=== PATIENT | male | born 1955 | race American Indian/Alaskan Native ===

== ENCOUNTER 2017-12-16 02:09 | Emergency (ER) | payer OTHER ==
--- NOTE | 2017-12-16 04:05 | Emergency Department Report ---
Chief Complaint: Back Pain/Injury Stated Complaint: BODY PAIN Time Seen by Provider: 12/16/17 04:01 - HPI History of Present Illness: Patient here complaining of left back pain on the left side that spreads all the way through his body. Patient denies any injury. He said he took Motrin at home but it didn't help. Patient blood pressure is elevated and he said he always has high blood pressure and he goes to the [place] for treatment but has not gone recently. He said his pain is 10 out of 10 on his left back that feels like it's going through his body. Patient blood pressure is 180/118 on evaluation. He has a history of hypertension, diverticulitis and renal cysts. Denies any urinary burning frequency or urgency. Denies any fever or chills. - ROS Review of Systems: All systems are negative unless stated in HPI above - Exam Vital Signs: Vital Signs 12/16/17 02:16 Temperature 97.5 F L Pulse Rate 74 Respiratory 17 Rate Blood Pressure 180/118 O2 Sat by Pulse 99 Oximetry Physical Exam: Gen.: This is a 62-year-old male that says it's difficult for him to stand. He is having pain to the left side of his back that feels like it's going through his body. Abdomen: Protruded, when palpated he's that he feels it in his back. Back: Normal inspection. He said he is unable to touch his toes. Patient did not want to do straight leg raises. MSE screening note: Focused history and physical exam performed. Due to findings the following was ordered: ED Medical Decision Making - Medical Decision Making MDM: Patient screened and to be seen by provider in [place] emergency room. Patient is 62 years old with elevated but pressure, history of high blood pressure, dizziness and piercing back pain on the left lower side of his back. Patient needs workup for AAA to include labs and CT scan of the abdomen and pelvis without contrast. He is also complaining of dizziness so he'll also have CT scan of the head without contrast. I discussed this with Dr. Beverly and chart given to Yesika was the charge nurse.. ED Disposition for MSE Condition: Stable Referrals: PRIMARY CARE, [Primary Care Provider] - 3-5 Days
[2017-12-16] MEDS ORDERED: MORPHINE IV ONE (04:06)
[2017-12-16] MEDS ORDERED: ZOFRAN IV ONE ×2 (04:06→09:22)
[2017-12-16 04:53] LABS: Basophils # (Auto) 0.1 K/mm3 (0.0-0.1); Eosinophils # (Auto) 0.3 K/mm3 (0.0-0.4); Eosinophils % (Auto) 5.9 % (0.0-4.3); Hematocrit 50.3 % (35.5-45.6); Hemoglobin 16.7 gm/dl (11.8-15.2); Lymphocytes # (Auto) 2.5 K/mm3 (1.2-5.4); Lymphocytes % (Auto) 46.1 % (13.4-35.0); Mean Corpuscular HGB Conc 33 % (32-34); Mean Corpuscular Hemoglobin 28 pg (28-32); Mean Corpuscular Volume 85 fl (84-94); Monocytes # (Auto) 0.6 K/mm3 (0.0-0.8); Platelet Count 234 K/mm3 (140-440); Red Blood Count 5.96 M/mm3 (3.65-5.03); Red Cell Distribution Width 14.9 % (13.2-15.2)
[2017-12-16 05:04] LABS: INR 0.83 (0.87-1.13)
[2017-12-16 05:05] LABS: Partial Thromboplastin Time 27.7 Sec. (24.2-36.6)
--- NOTE | 2017-12-16 05:23 | Cat Scan Report ---
FINAL REPORT EXAM: CT HEAD/BRAIN WO CON HISTORY: elevated bp with dizziness TECHNIQUE: CT imaging acquired through the head without intravenous contrast. Transaxial reformations are provided. PRIORS: None. FINDINGS: The ventricles, cisterns and sulci are within normal limits. No intraparenchymal or extra-axial mass, hemorrhage, or mass effect. Jnoes and white-matter differentiation is within normal limits for patient age. Normal spherical shape of the globes. No significant abnormality involving the imaged portions of the paranasal sinuses and mastoid air cells. No skull or facial fracture visualized. IMPRESSION: No acute intracranial abnormality. Consider follow-up MRI as warranted.
[2017-12-16 05:40] LABS: Alanine Aminotransferase 24 units/L (7-56); Albumin 4.3 g/dL (3.9-5); BUN/Creatinine Ratio 12; Blood Urea Nitrogen 12 mg/dL (9-20); Calcium 9.1 mg/dL (8.4-10.2); Hemolysis Index 32
[2017-12-16 05:42] LABS: Bilirubin,Direct < 0.2 mg/dL (0-0.2)
--- NOTE | 2017-12-16 05:50 | Cat Scan Report ---
FINAL REPORT EXAM: CT ABDOMEN PELVIS WO CON HISTORY: elevated bp with left back pain TECHNIQUE: CT images obtained through the Abdomen and Pelvis without contrast. Transaxial,coronal and sagittal reformats are provided. PRIORS: None. FINDINGS: Imaged intrathoracic contents are unremarkable. There are several renal cysts measuring up to 3.2 cm in the left kidney and 2 cm in the right kidney. Kidneys are normal in size, axis and position. No hydronephrosis or nephrolithiasis. The ureters are normal in course and caliber. No stones are seen within the urinary bladder. The liver, gallbladder, pancreas, and spleen demonstrate an unremarkable noncontrast appearance. The right adrenal gland is unremarkable. There is mild thickening of the left adrenal gland with a an indeterminate nodule measuring up to 1 centimeter on axial series 3, image 64 (average attenuation of 26 Hounsfield units.) Hollow enteric organs are normal in caliber. Central abdominal anastomosis is noted. There is fluid throughout the length of the colon without wall thickening or pericolonic edema or stranding. A few scattered descending colonic diverticula are noted without surrounding inflammatory findings. No findings of acute appendicitis. No intra-abdominal free air/fluid or lymphadenopathy. Aorta is normal in caliber with scattered atherosclerosis. Superficial soft tissues are remarkable for an anterior midline surgical scar. No acute or aggressive appearing skeletal findings. Mild chronic anterior wedging with small Schmorl's node at L1. IMPRESSION: Fluid throughout the length of the colon without evident wall thickening, pericolonic stranding or edema is most likely infectious or inflammatory in etiology. No evident obstruction, abscess or pneumoperitoneum. Indeterminate 1 centimeter left adrenal nodule is most likely benign but is incompletely characterized on this exam. Correlation with prior imaging is requested. If this finding has not been previously documented, follow-up MRI is suggested.
[2017-12-16 08:56] LABS: Bilirubin,Urine NEG (Negative); Blood,Urine NEG (Negative); Color,Urine Yellow (Yellow); Protein,Urine <15 mg/dL mg/dL (Negative); Urobilinogen,Urine < 2.0 mg/dL (<2.0); WBC,Urine < 1.0 /HPF (0.0-6.0)
[2017-12-16] MEDS ORDERED: FLEXERIL PO ONE (09:21)
[2017-12-16] MEDS ORDERED: DILAUDID IV ONE ×2 (09:21→10:48)
--- NOTE | 2017-12-16 09:57 | Emergency Department Report ---
ED Chest Pain HPI - General Chief Complaint: Back Pain/Injury Stated Complaint: BODY PAIN Time Seen by Provider: 12/16/17 04:01 Source: patient Mode of arrival: Ambulatory Limitations: No Limitations - History of Present Illness Initial Comments: 62 yo male with a past medical history of htn, diverticulitis with surgical removal 8 inches of large intestines and 1993, and chronic right flank pain presents to the Hospital complaining of left posterior thoracic pain and mid posterior thoracic pain described as feeling like marbles in knots x 2 weeks. Pain is intermittent and worse with movement and twisting of torso. At times pain is severe in intensity and improved with remaining still. Patient complains of "shortness of breath sometimes." Positive nausea without vomiting , fever, hematuria, abdominal pain, diarrhea, or anterior chest pain. Patient presents with elevated blood pressure and states he's been compliant with his BP medication. Patient states he feels like the pain is moving around and expresses concern about his chronic right flank pain that he's had for years without a definitive diagnosis. Occasional lightheadedness reported. [facility] No recent travel or history of blood clot reported. Severity scale (0 -10): 0 - Related Data Previous Rx's Medication Instructions Recorded Last Taken Type Cyclobenzaprine [Flexeril] 10 mg PO TID PRN #30 tablet 12/16/17 Unknown Rx oxyCODONE /ACETAMINOPHEN [Percocet 1 tab PO Q4HR #20 tab 12/16/17 Unknown Rx 5/325] Allergies Allergy/AdvReac Type Severity Reaction Status Date / Time No Known Allergies Allergy Unverified 04/01/16 06:49 Heart Score - HEART Score History: Slightly suspicious EKG: Normal Age: 45-65 Risk factors: 1-2 risk factors Troponin: < normal limit HEART Score: 2 ED Review of Systems ROS: Stated complaint: BODY PAIN Other details as noted in HPI Comment: All other systems reviewed and negative Other: Constitutional: No fevers chills Eyes: No eye pain visual changes ENT: No ear pain or throat pain Neck: Denies pain Respiratory: Denies cough wheezing Cardiovascular: Denies palpitations, syncope GI: Denies abdominal pain, vomiting, diarrhea, : Denies dysuria Musculoskeletal: as per hpi Skin: Denies rash, lesions, erythema Neurologic: Denies headache, numbness, weakness Psychiatric: Denies suicidal ideation, hallucinations ED Past Medical Hx - Past Medical History Previous Medical History?: Yes Hx Hypertension: Yes Additional medical history: Diverticulitis. Renal Cyst - Surgical History Past Surgical History?: Yes Additional Surgical History: cyst removal from foot and hand, - Social History Smoking Status: Never Smoker - Medications Home Medications: Home Medications Medication Instructions Recorded Confirmed Last Taken Type Cyclobenzaprine [Flexeril] 10 mg PO TID PRN #30 tablet 12/16/17 Unknown Rx oxyCODONE /ACETAMINOPHEN [Percocet 1 tab PO Q4HR #20 tab 12/16/17 Unknown Rx 5/325] ED Physical Exam - General Limitations: No Limitations - Other Other exam information: General: No limitations, patient is alert in no acute distress Head exam: Atraumatic, normocephalic Eyes exam: Normal appearance, pupils equal reactive to light, extraocular movements intact ENT: Moist mucous membrane, normal oropharynx Neck exam: Normal inspection, full range of motion, no meningismus nontender Respiratory exam: Clear to auscultation bilateral, no wheezes, rales, crackles Cardiovascular: Normal rate and rhythm, normal heart sounds, no tenderness to anterior or posterior chest wall. Positive increased pain with twisting of torso Abdomen: Soft, nondistended, and nontender, with normal bowel sounds, no rebound, or guarding Extremity: Full range of motion normal inspection no deformity, no calf tenderness/edema or leg asymmetry Back: Normal Inspection, full range of motion, no tenderness, no CVA tenderness or back tenderness to palpation Neurologic: Alert, oriented x3, cranial nerves intact, no motor or sensory deficit Psychiatric: normal affect, normal mood Skin: Warm, dry, intact ED Course Vital Signs 12/16/17 12/16/17 12/16/17 02:16 04:05 06:05 Temperature 97.5 F L 97.7 F Pulse Rate 74 59 L Respiratory 17 17 Rate Blood Pressure 180/118 137/96 Blood Pressure 137/100 [Right] O2 Sat by Pulse 99 98 Oximetry 12/16/17 12/16/17 12/16/17 06:16 06:27 06:30 Temperature 97.4 F L Pulse Rate 66 Respiratory 16 Rate Blood Pressure 137/96 137/96 Blood Pressure 137/96 [Right] O2 Sat by Pulse 98 99 94 Oximetry 12/16/17 12/16/17 12/16/17 06:46 07:00 07:05 Temperature 97.7 F Pulse Rate 67 Respiratory 16 16 Rate Blood Pressure 137/96 124/88 Blood Pressure 124/88 [Right] O2 Sat by Pulse 94 90 94 Oximetry 12/16/17 12/16/17 12/16/17 07:16 07:30 07:46 Temperature Pulse Rate Respiratory Rate Blood Pressure 124/88 124/88 124/88 Blood Pressure [Right] O2 Sat by Pulse 95 96 96 Oximetry 12/16/17 12/16/17 12/16/17 08:00 08:20 08:30 Temperature Pulse Rate Respiratory Rate Blood Pressure 131/89 131/89 131/89 Blood Pressure [Right] O2 Sat by Pulse 95 98 Oximetry 12/16/17 12/16/17 12/16/17 08:46 09:00 09:16 Temperature Pulse Rate Respiratory Rate Blood Pressure 131/89 139/106 131/89 Blood Pressure [Right] O2 Sat by Pulse 95 96 Oximetry 12/16/17 12/16/17 12/16/17 09:30 09:50 09:54 Temperature Pulse Rate Respiratory 18 Rate Blood Pressure 131/89 131/89 Blood Pressure [Right] O2 Sat by Pulse 97 Oximetry 12/16/17 12/16/17 12/16/17 10:00 10:16 10:30 Temperature Pulse Rate Respiratory Rate Blood Pressure 135/100 135/100 135/100 Blood Pressure [Right] O2 Sat by Pulse 92 97 96 Oximetry 12/16/17 12/16/17 12/16/17 10:46 11:00 11:16 Temperature Pulse Rate Respiratory Rate Blood Pressure 139/106 139/99 139/99 Blood Pressure [Right] O2 Sat by Pulse 94 94 Oximetry 12/16/17 12/16/17 12/16/17 11:20 11:21 11:30 Temperature Pulse Rate Respiratory 16 16 Rate Blood Pressure 139/99 Blood Pressure [Right] O2 Sat by Pulse 97 Oximetry 12/16/17 11:50 Temperature 97.7 F Pulse Rate 67 Respiratory 16 Rate Blood Pressure Blood Pressure 139/99 [Right] O2 Sat by Pulse 97 Oximetry - Reevaluation(s) Reevaluation #1: 12/16/17 10:48 Patient wide awake without signs of sedation after receiving Dilaudid 0.5 mg and Flexeril 10mg. Patient states that there has been no change in his pain. Given additional Dilaudid 0.5 and [place] prior to discharge DEREK score - Derek Score Age > 65: (0) No Aspirin use within the Past 7 Days: (0) No 3 or more CAD Risk Factors: (1) Yes 2 or more Angina events in past 24 hrs: (0) No Known CAD with more than 50% Stenosis: (0) No Elevated Cardiac Markers: (0) No ST Deviation Greater than 0.5mm: (0) No DEREK Score: 1 ED Medical Decision Making - Lab Data Result diagrams: 12/16/17 04:31 12/16/17 04:31 Lab Results 12/16/17 12/16/17 12/16/17 Range/Units 04:31 04:31 04:31 WBC 5.4 (4.5-11.0) K/mm3 RBC 5.96 H (3.65-5.03) M/mm3 Hgb 16.7 H (11.8-15.2) gm/dl Hct 50.3 H (35.5-45.6) % MCV 85 (84-94) fl MCH 28 (28-32) pg MCHC 33 (32-34) % RDW 14.9 (13.2-15.2) % Plt Count 234 (140-440) K/mm3 Lymph % (Auto) 46.1 H (13.4-35.0) % [place] % (Auto) 11.0 H (0.0-7.3) % Eos % (Auto) 5.9 H (0.0-4.3) % Baso % (Auto) 1.0 (0.0-1.8) % Lymph # 2.5 (1.2-5.4) K/mm3 [place] # 0.6 (0.0-0.8) K/mm3 Eos # 0.3 (0.0-0.4) K/mm3 Baso # 0.1 (0.0-0.1) K/mm3 Seg Neutrophils % 36.0 L (40.0-70.0) % Seg Neutrophils # 2.0 (1.8-7.7) K/mm3 PT 11.8 L (12.2-14.9) Sec. INR 0.83 L (0.87-1.13) APTT 27.7 (24.2-36.6) Sec. D-Dimer 141.09 (0-234) ng/mlDDU Sodium 136 L (137-145) mmol/L Potassium 3.8 (3.6-5.0) mmol/L Chloride 99.5 (98-107) mmol/L Carbon Dioxide 24 (22-30) mmol/L Anion Gap 16 mmol/L BUN 12 (9-20) mg/dL Creatinine 1.0 (0.8-1.5) mg/dL Estimated GFR > 60 ml/min BUN/Creatinine Ratio 12 % Glucose 94 (75-100) mg/dL Calcium 9.1 (8.4-10.2) mg/dL Total Bilirubin 0.20 (0.1-1.2) mg/dL Direct Bilirubin < 0.2 (0-0.2) mg/dL AST 20 (5-40) units/L ALT 24 (7-56) units/L Alkaline Phosphatase 154 H (35-129) units/L Troponin T (0.00-0.029) ng/mL Total Protein 7.1 (6.3-8.2) g/dL Albumin 4.3 (3.9-5) g/dL Albumin/Globulin Ratio 1.5 % Urine Color (Yellow) Urine Turbidity (Clear) Urine pH (5.0-7.0) Ur Specific [place] (1.003-1.030) Urine Protein (Negative) mg/dL Urine Glucose (UA) (Negative) mg/dL Urine Ketones (Negative) mg/dL Urine Blood (Negative) Urine Nitrite (Negative) Urine Bilirubin (Negative) Urine Urobilinogen (<2.0) mg/dL Ur Leukocyte Esterase (Negative) Urine WBC (Auto) (0.0-6.0) /HPF Urine RBC (Auto) (0.0-6.0) /HPF 12/16/17 12/16/17 Range/Units 04:31 08:30 WBC (4.5-11.0) K/mm3 RBC (3.65-5.03) M/mm3 Hgb (11.8-15.2) gm/dl Hct (35.5-45.6) % MCV (84-94) fl MCH (28-32) pg MCHC (32-34) % RDW (13.2-15.2) % Plt Count (140-440) K/mm3 Lymph % (Auto) (13.4-35.0) % [place] % (Auto) (0.0-7.3) % Eos % (Auto) (0.0-4.3) % Baso % (Auto) (0.0-1.8) % Lymph # (1.2-5.4) K/mm3 [place] # (0.0-0.8) K/mm3 Eos # (0.0-0.4) K/mm3 Baso # (0.0-0.1) K/mm3 Seg Neutrophils % (40.0-70.0) % Seg Neutrophils # (1.8-7.7) K/mm3 PT (12.2-14.9) Sec. INR (0.87-1.13) APTT (24.2-36.6) Sec. D-Dimer (0-234) ng/mlDDU Sodium (137-145) mmol/L Potassium (3.6-5.0) mmol/L Chloride (98-107) mmol/L Carbon Dioxide (22-30) mmol/L Anion Gap mmol/L BUN (9-20) mg/dL Creatinine (0.8-1.5) mg/dL Estimated GFR ml/min BUN/Creatinine Ratio % Glucose (75-100) mg/dL Calcium (8.4-10.2) mg/dL Total Bilirubin (0.1-1.2) mg/dL Direct Bilirubin (0-0.2) mg/dL AST (5-40) units/L ALT (7-56) units/L Alkaline Phosphatase (35-129) units/L Troponin T < 0.010 (0.00-0.029) ng/mL Total Protein (6.3-8.2) g/dL Albumin (3.9-5) g/dL Albumin/Globulin Ratio % Urine Color Yellow (Yellow) Urine Turbidity Clear (Clear) Urine pH 6.0 (5.0-7.0) Ur Specific [place] 1.013 (1.003-1.030) Urine Protein <15 mg/dl (Negative) mg/dL Urine Glucose (UA) Neg (Negative) mg/dL Urine Ketones Neg (Negative) mg/dL Urine Blood Neg (Negative) Urine Nitrite Neg (Negative) Urine Bilirubin Neg (Negative) Urine Urobilinogen < 2.0 (<2.0) mg/dL Ur Leukocyte Esterase Neg (Negative) Urine WBC (Auto) < 1.0 (0.0-6.0) /HPF Urine RBC (Auto) 1.0 (0.0-6.0) /HPF - EKG Data -: EKG Interpreted by Me (benitez) EKG shows normal: sinus rhythm, axis (qes 5), QRS complexes (95), ST-T waves ( no stemi/t inv) Rate: normal - EKG Data When compared to previous EKG there are: previous EKG unavailable - Radiology Data Radiology results: report reviewed Read by radiologist CT head: No acute findings CT abdomen and pelvis without contras fluid throughout the length of the colon without wall thickening or pericolic edema or stranding. Diverticuli without inflammatory changes. No lymphadenopathy. Chronic anterior wedging with small Schmorl's nodes at L1. Left adrenal nodule. Follow-up recommended. Chest x-ray PA and lateral: No acute findings - Medical Decision Making Patient has intermittent pain to his posterior thorax that his exacerbation with movement and moves around. Patient denies PE risk factors and has a negative d-dimer without signs or symptoms of DVT. Chest x-ray, CT abdomen and pelvis, CT head unremarkable. UA and labs unremarkable including neg trop with unremarkable ekg. Elevated blood pressure improved with pain medication and hypertensive medication would not provide any ED. Patient will be discharged home with muscular skeletal thoracic chest pain. A copy of CT report and labs will be provided for his follow-ups with his doctors at the [place] regarding incidental finding and re-evaluation - Differential Diagnosis PE, GA, dissection, MSK pain, pneumothorax, renal colic Critical Care Time: No Critical care attestation.: If time is entered above; I have spent that time in minutes in the direct care of this critically ill patient, excluding procedure time. ED Disposition Clinical Impression: Thoracic back pain, HTN (hypertension) Disposition: TO HOME OR SELFCARE Is pt being admited?: No Does the pt Need Aspirin: No Condition: Stable Instructions: Chronic Hypertension (ED), Hypertension (ED), Thoracic Pain (ED) Additional Instructions: Take the medication as prescribed as needed for pain. Also take Motrin as needed for pain. Take the copy of the CAT scans, x-ray, and laboratory findings to your doctor for further evaluation. You have several incidental findings on the CAT scan that need further follow-up and reevaluation by your doctor. Please return is symptoms worsen as indicated by your discharge instructions Prescriptions: Cyclobenzaprine [Flexeril] 10 mg PO TID PRN #30 tablet PRN Reason: Muscle Spasm oxyCODONE /ACETAMINOPHEN [Percocet 5/325] 1 tab PO Q4HR #20 tab Referrals: PRIMARY CARE, [Primary Care Provider] - 2-3 Days Time of Disposition: 11:15
--- NOTE | 2017-12-16 10:06 | XRay Report ---
ROUTINE CHEST, TWO VIEWS: HISTORY: Left thoracic pain. The trachea, heart, mediastinal contour, lung [place] and bony thorax are unremarkable. IMPRESSION: Unremarkable chest x-ray.
[2017-12-16] MEDS ORDERED: NORCO 5/325 PO ONE (10:47)
[2017-12-16] MEDS ORDERED: TORADOL IV ONE (11:01)
[2017-12-16 11:32] VITALS: BP 139/99
== END 2017-12-16 11:50 | disposition home or self-care (01) ==
LOC: ED 02:09
DX: M54.6 Pain in thoracic spine (principal); I10 Essential (primary) hypertension
CPT/HCPCS: 36415; 70450; 71046; 74176; 80048; 80074; 81001; 84484; 85025; 85379; 85610; 85730; 93005; 93010; 96374; 96375; 96376; 99284; J1170; J1885; J2270; J2405